=== PATIENT | female | born 1965 | race Caucasian/White ===

== ENCOUNTER 2022-09-12 08:10 | Outpatient (CLI) | payer OTHER, SELFPAY ==
--- OUTSIDE RECORDS SUMMARY | 2022-09-12 08:13 | XMS_ITS | Clinical Summary ---
:1965 Author Organization [facility] [facility] [place] [address] Care Team Providers Name Role Phone Ciro Galindo MD Primary Care Provider [phone] Allergies Active Allergy Reactions Severity Noted Date Comments Penicillins Medications Medication Sig Dispensed Refills Start Date End Date Status losartan (COZAAR) 50 mg Take 1 Tablet (50 90 Tablet 3 11/25/19 22 Active tabletIndications: mg) by mouth once Essential hypertension daily. Active Problems Problem Noted Date Routine adult health maintenance 12/03/2019 Overview: Colonoscopy 11/2019 normal, repeat in 10 years Pure hypercholesterolemia 05/22/2007 Unspecified essential hypertension 05/22/2007 Overview: dx 02/23 Immunizations Name Administration Dates Next Due AMB Influenza, IIV3 (Age 6-35 mos) (Flu 09/20/2018 Clinic Only) COVID-19 vaccine (iHandle 11/02/2021, 12/01/2020, 30mcg/0.3mL) PF, MDV Influenza, IIV3 (Age >=3 years) 08/18/2021 Td (Age >=7 Years) 11/20/2001 Family History Medical History Relation Name Comments Heart Disease Father [place]/angioplasties /CABG Heart Disease Mother palpitations Heart Disease Paternal Grandfather of [place] at 54 Heart Disease Paternal Uncle IA Relation Name Status Comments Father Mother Paternal Grandfather Paternal Uncle Social History Tobacco Use Types Packs/Day Years Used Date Never Smoker Smokeless Tobacco: Never Used Tobacco Cessation: Counseling Given: Yes Alcohol Use Standard Drinks/Week Comments Yes 0.8 (1 standard drink = 0.6 oz pure alco hol) Sex Assigned at Date Recorded Not on file Obstetrics History Para Term AB IAB SAB Ectopic Multiple Living Live Births 5 2 2 0 3 0 3 0 0 2 Date Outcome GA Total Labor/2nd/3rd Weight Sex Delivery Anes PTL Leanne A 1 A5 Name Clin Labor SAB SAB SAB Term Term Last Filed Vital Signs Vital Sign Reading Time Taken Comments Blood Pressure 126/84 11/25/2021 8:09 AM VOLTAGE INSPECTOR Pulse 88 11/25/2021 8:03 AM VOLTAGE INSPECTOR Temperature 36.8 ??C (98.2 ??F) 06/18/2020 8:04 AM CDT Respiratory Rate - - Oxygen Saturation 97% 11/25/2021 8:03 AM VOLTAGE INSPECTOR Inhaled Oxygen Concentration - - Weight 66 kg (145 lb 9.6 oz) 11/29/2007 1:55 PM VOLTAGE INSPECTOR Height - - Body Mass Index - - Plan of Treatment Upcoming Encounters Date Type Specialty Care Team Description 10/31/2022 Office Visit Ciro Galindo MD [address] [place], [place] [address] (Wo rk) Health Maintenance Due Date Last Done Comments Tdap 1978 BMI (ht and wt on same day) for 1985 age 18+ Hepatitis C screening for age 1009/04/1985 18-79 Pap test for age 21-65 11/20/2007 11/20/2004 Tetanus booster 11/20/2011 11/20/2001 Zoster (shingles) series for age 1009/04/2017 50+ (1 of 2) Depression screening for age 12+ 06/18/2021 06/18/2020, , 02/16/2017 COVID-19 vaccine series (4 - 12/28/2021 11/02/2021, 021, Booster for Pfizer series) 11/11/2020 Lipids for age 45-75 02/16/2022 02/16/2017, 06/19/2013, 11/11/2008 Influenza for age 50-64 07/21/2022 08/18/2021 Mammogram for age 45-75 09/09/2022 09/09/2021, 09/07/2020, 09/19/2019, Additional history exists Colonoscopy through age 75 12/03/2029 12/03/2019, 0, 12/03/2019 Results Not on filefrom Last 3 Months Insurance Payer Benefit Plan / Subscriber ID Effective Dates Phone Addre ss Type Group PREFERRED ONE PREFERRED ONE [id number] 2021-Piotr KEARNEY [address] [place] [id number] [place] [id number] Tessa Cant[address] Self [id number] [phone] Milagro [place]OVAK (Work) [id number] Care Teams Pasteuriser Operator Relationship Specialty Start Date End Date Ciro Galindo MD PCP - General 09/13/[address] [place] [address]
--- NOTE | 2022-09-12 08:15 | CRLHL7_ITS ---
For Patients: As a result of the Century Cures Act, medical imaging exams and procedure reports are released immediately into your electronic medical record. You may view this report before your referring provider. If you have questions, please contact your health care provider. BILATERAL SCREENING MAMMOGRAM WITH COMPUTER-AIDED DETECTION AND TOMOSYNTHESIS TECHNIQUE: CC and MLO views were obtained. These mammographic images have been obtained using full-field digital technique. These mammographic images were interpreted with the benefit of computer-aided detection. Breast Tomosynthesis was used in this interpretation. COMPARISON FILM: 09/09/21, 09/07/20, 09/19/19. FINDINGS: There are scattered areas of fibroglandular density IMPRESSION: There is no radiographic evidence for malignancy. ASSESSMENT: BI-RADS Category 1: Negative RECOMMENDATION: Routine screening mammogram in 1 year. A lay language report of this examination will be provided to the patient. Duane Austin M.D. Diagnostic Radiologist [email or web address] MEGHANN/Dictated by: Duane Austin MD @ 09/12/2022 11:57:00 AM (Electronically Signed)
== END 2022-09-12 08:11 | disposition home or self-care (01) ==
PROVIDERS: PCP Family Medicine; Visit Provider Family Medicine
DX: Z12.31 Encounter for screening mammogram for malignant neoplasm of breast (principal)
CPT/HCPCS: 77063; 77067

== ENCOUNTER 2022-11-15 14:44 | Outpatient (CLI) | payer OTHER, SELFPAY ==
[2022-11-15 15:53] VITALS: BP 131/74; PULSE 83
--- NOTE | 2022-11-15 17:20 | W.PM.STED ---
Stress Test Note Date Date Seen: 11/15/22 Date of test: 11/15/22 Providers Primary care provider: Ciro Galindo Stress test physician: Harmeet Lopez Stress Test Note Stress test ordered: Stress Echo Indication for test: Chest pain Results discussion: Patient is a 57-year-old female presents here for a stress echo from ordering physician indication is chest pain after discussion the risks benefits side effects reviewed the cardiac stress test medical history she would like to proceed pretest EKG shows normal sinus rhythm, ventricular rate 93 in a blood pressure 138 on 83, patient was followed Juvenal protocol for 10 minutes and achieved a metabolic open 11.7 Mets condition was felt to be excellent maximum was 163 was 116% of the maximum a 10 minutes 10 seconds, test is terminated his of fulfillment of protocol, she had no ST wave changes suggestive of ischemia, there is no dysrhythmias, and otherwise was normal with no other subjective complaints Impression: Negative electrographic portion of stress echo Follow up suggested: Await echo images clinical correlation with these will be needed, patient left this testing facility in excellent condition,
== END 2022-11-15 14:45 | disposition home or self-care (01) ==
PROVIDERS: PCP Family Medicine; Visit Provider Family Medicine
DX: R07.89 Other chest pain (principal)
CPT/HCPCS: 93016; 93325; 93351

== ENCOUNTER 2023-09-06 10:10 | Outpatient (CLI) | payer OTHER, SELFPAY ==
--- NOTE | 2023-09-06 10:15 | CRLHL7_ITS ---
For Patients: As a result of the Century Cures Act, medical imaging exams and procedure reports are released immediately into your electronic medical record. You may view this report before your referring provider. If you have questions, please contact your health care provider. DIGITAL SCREENING BILATERAL MAMMOGRAM USING TOMOSYNTHESIS AND COMPUTER-AIDED DETECTION INDICATION: 58-year-old asymptomatic female. Screening study. The patient has lost 20 pounds since the last mammogram. TECHNIQUE: CC and MLO views were obtained. This digital study was evaluated with assistance of computer-aided detection. Digital breast tomosynthesis utilized in interpretation. COMPARISON: 09/12/2022. 09/09/2021. FINDINGS: Breast Composition: There are areas of scattered fibroglandular density. There is a developing density in the central medial LEFT breast seen only on the CC view. This may reflect superimposed parenchymal elements, but it appears somewhat more dense than before potentially related to interval reported intentional weight loss. Recommend a spot compression view in the CC projection, as well as a true ML view. Rolled CC views mediolaterally may be required. IMPRESSION: 1. Nothing for malignancy on the RIGHT. No significant change on the RIGHT other than a slightly smaller breast likely due to interval weight reduction. 2. Developing density central LEFT breast middle depth at approximately the 12 o`clock position seen only on the CC view for which additional imaging is recommended. Ultrasound may be required if this density persists. BI-RADS Category 0: Incomplete: Need Additional Imaging Evaluation and/or Prior Mammograms for Comparison [facility] will contact the patient for follow-up. A lay language report of this examination will be provided to the patient. Dictated by: Carlos Alberto Aguilar MD @09/06/2023 11:06:33 AM carlos/Dictated by: Carlos Alberto Aguilar MD @ 09/06/2023 11:06:00 AM (Electronically Signed)
== END 2023-09-06 10:11 | disposition home or self-care (01) ==
PROVIDERS: PCP Family Medicine; Visit Provider Family Medicine
DX: Z12.31 Encounter for screening mammogram for malignant neoplasm of breast (principal); N63.20 Unspecified lump in the left breast, unspecified quadrant
CPT/HCPCS: 77063; 77067

== ENCOUNTER 2023-09-13 07:43 | Outpatient (CLI) | payer OTHER, SELFPAY ==
--- NOTE | 2023-09-13 07:45 | CRLHL7_ITS ---
For Patients: As a result of the Cures Act, medical imaging exams and procedure reports are released immediately into your electronic medical record. You may view this report before your referring provider. If you have questions, please contact your health care provider. DIGITAL DIAGNOSTIC LEFT MAMMOGRAM USING TOMOSYNTHESIS AND COMPUTER-AIDED DETECTION LEFT BREAST ULTRASOUND CLINICAL HISTORY: LEFT breast mass/asymmetry. COMPARISON: 09/06/2023. TECHNIQUE: Digital LEFT mammogram in two projections. Tomosynthesis and CAD utilized. Real-time ultrasound imaging of LEFT breast with imaging documentation. BREAST COMPOSITION: The breast is heterogeneously dense, which may obscure small masses. FINDINGS: 3D true lateral and 3D spot compression CC LEFT breast mammogram images submitted. Decreased conspicuity of previously noted asymmetric density. No architectural distortion or suspicious calcification. Targeted LEFT breast ultrasound performed in the retroareolar plane demonstrates normal dense fibroglandular tissue. No suspicious findings. IMPRESSION: No evidence of malignancy. RECOMMENDATIONS: Annual BILATERAL screening mammography. Results and recommendations discussed with the patient. BI-RADS Category 2: Benign A lay language report of this examination will be provided to the patient. Dictated by Duane Austin MD @ 09/13/2023 1:06:21 PM janis/Dictated by: Duane Austin MD @ 09/13/2023 1:06:00 PM (Electronically Signed)
--- NOTE | 2023-09-13 08:15 | CRLHL7_ITS ---
For Patients: As a result of the Cures Act, medical imaging exams and procedure reports are released immediately into your electronic medical record. You may view this report before your referring provider. If you have questions, please contact your health care provider. PLEASE SEE DIGITAL DIAGNOSTIC LEFT MAMMOGRAM PERFORMED SAME DAY CRL:janis bruce/Dictated by: Duane Austin MD @ 09/13/2023 1:06:00 PM (Electronically Signed)
== END 2023-09-13 07:44 | disposition home or self-care (01) ==
LOC: MAMMO 07:43
PROVIDERS: PCP Family Medicine; Visit Provider Family Medicine
DX: N63.20 Unspecified lump in the left breast, unspecified quadrant (principal); R92.8 Other abnormal and inconclusive findings on diagnostic imaging of breast
CPT/HCPCS: 76642; 77065; G0279

== ENCOUNTER 2023-11-17 14:41 | Outpatient (CLI) | payer OTHER, SELFPAY | END 2023-11-17 14:42 | disposition home or self-care (01) | PROVIDERS: PCP Family Medicine; Visit Provider Family Medicine | DX: I10 Essential (primary) hypertension (principal) | CPT/HCPCS: 80048; 80061 ==

== ENCOUNTER 2024-09-09 13:38 | Outpatient (CLI) | payer OTHER, SELFPAY ==
--- NOTE | 2024-09-09 13:40 | CRLHL7_ITS ---
For Patients: As a result of the Century Cures Act, medical imaging exams and procedure reports are released immediately into your electronic medical record. You may view this report before your referring provider. If you have questions, please contact your health care provider. BILATERAL SCREENING MAMMOGRAM WITH COMPUTER-AIDED DETECTION AND TOMOSYNTHESIS TECHNIQUE: CC and MLO views were obtained. These mammographic images have been obtained using full-field digital technique. These mammographic images were interpreted with the benefit of computer-aided detection. Breast Tomosynthesis was used in this interpretation. COMPARISON FILM: 09/06/23, 09/12/22, 09/09/21. FINDINGS: There are scattered areas of fibroglandular density. IMPRESSION: There is no radiographic evidence for malignancy. ASSESSMENT: BI-RADS Category 2: Benign RECOMMENDATION: Routine screening mammogram in 1 year. A lay language report of this examination will be provided to the patient. Duane Austin M.D. Diagnostic Radiologist [email or web address] SP/Dictated by: Duane Austin MD @ 09/12/2024 11:39:00 AM (Electronically Signed)
--- OUTSIDE RECORDS SUMMARY | 2024-09-09 13:42 | XMS_ITS | Clinical Summary ---
Author Organization [email or web address] [facility] Address [place], [place] [address] Care Team Providers Care Linseed Oil Press Tender Name Role Phone Unavailable Primary Care Provider Unavailabl e Allergies Active Allergy Reactions Criticality Noted Date Comments Penicillins Medications Medication Sig Dispensed Refills Start Date End Date Status losartan (COZAAR) 50 mg tabletIndications:Esse ntial hypertension Take 1 Tablet (50 mg) by mouth once daily. 90 Tablet 3 10/31/2022 Active Active Problems Problem Noted Date Diagnosed Date Routine adult health maintenance 12/03/2019 Overview (12/03/2019): Colonoscopy 11/2019 normal, repeat in 10 years Pure hypercholesterolemia 05/22/2007 Unspecified essential hypertension 05/22/2007 Overview (05/22/2007): dx 02/23 Immunizations Name Administration Dates Next Due AMB Influenza, IIV3 (Age 6-3 5 mos) (Flu Clinic Only) 09/20/2018 COVID-19 vaccine (Follica NTAsia Translate 30mcg/0.3mL) PF, MDV 11/02/2021,12/01/2020,11/11/2020 Influenza, IIV3 (Age >=3 years) 08/18/2021 Influenza, IIV4 09/19/2022 Td (Age >=7 Years) 11/20/2001 Zoster (Shingrix-RZV, recombinant) 10/31/2022 Family History Medical History Relation Name Comments Heart Disease Father [place]/angioplasti es/CABG Heart Disease Mother palpitations Heart Disease Paternal Grandfather o f PR at 54 Heart Disease Paternal Uncle PR Relation Name Status Comments Father Mother Paternal Grandfather Paternal Uncle Social History Tobacco Use Types Packs/Day Years Used Date Smoking Tobacco: Never Smokeless Tobacco: Never Tobacco Cessation:Counseling Given: Yes Alcohol Use Standard Drinks/Week Comments Yes 0.8 (1 standard drink = 0.6 oz p ure alcohol) PHQ-2 Answer Date Recorded PHQ-2 TOTAL SCORE 0 06/18/2020 Social Connections Answer Date Recorded Frequency of Communication with Friends and Fami ly Not on file 11/13/2023 Financial Resource Strain Answer Date R ecorded Difficulty of Paying Living Expenses 3 10/31/2022 Difficulty of Paying Living Expenses Not on file 10/31/2022 Food Insecurity Answer Date Recorded Worried About Running Out of Food in the Last Ye ar 1 10/31/2022 Transportation Needs Answer Date Record ed Lack of Transportation (Medical) 1 10/31/2022 Housing Stability Answer Date Recorded Unable to Pay for Housing in the Last Year 1 10/31/2022 Sex and Gender Information Value Date Recorded Sex Assigned at Not on file Gender Identity Not on file Sexual Orientation Not on file Obstetrics History Para Term AB IAB SAB Ectopic Multiple Livin g Live Births 5 2 2 0 3 0 3 0 0 2 Date Outcome GA Total Labor Labor/2nd/3rd Weight Sex Type Anes PTL Leanne A1 A5 Name Clin SAB SAB SAB Term Term Last Filed Vital Signs Vital Sign Reading Time Taken Comments Blood Pressure 122/84 10/31/2022 8:20 AM STONE CARVER Pulse 74 10/31/2022 8:06 AM STONE CARVER Temperature 36.8 ??C (98.2 ??F) 06/18/2020 8:04 AM CD T Respiratory Rate - - Oxygen Saturation 98% 10/31/2022 8:06 AM STONE CARVER Inhaled Oxygen Concentration - - Weight 66 kg (145 lb 9.6 oz) 11/29/2007 1:55 PM STONE CARVER Height - - Body Mass Index - - Plan of Treatment Health Maintenance Due Date Last Done Comments Tdap 1978 HIV for age 15-65 1982 BMI (ht and wt on same day) for age 18+ 1985 Hepatitis C screening for age 18-79 1985 Pap test for age 21-65 11/20/2007 11/20/2004 Tetanus booster 11/20/2011 11/20/2001 Depression screening for age 12+ 06/18/2021 06/18/2020, 12/10/2018, 02/16/2017 Lipids for age 45-75 02/16/2022 02/16/2017, 06/19/2013, 11/11/2008 Zoster (shingles) series for age 50+ (2 of 2) 12/26/2022 10/31/2022 COVID-19 vaccine series ( season) 2024 11/02/2021, 12/01/2020, 11/11/2020 Influenza for age 50-64 07/21/2024 09/19/2022, 08/18 Mammogram for age 45-75 09/13/2024 09/13/20, 09/12/2022, 09/09/2021, Additional history exists Colonoscopy through age 75 12/03/202912/03, 12/03/2019, 12/03/2019 Pneumococcal series for age 6-64 Aged Out No longer eligible based on patient's age to complete this topic Procedures Procedure Name Priority Date/Time Associated Diagnosis Comments SCAN-MAMMOGRAPHY REPORT 09/13/2023 12:00 AM CDT COLONOSCOPY 12/03/2019 8:46 AM STONE CARVER LIPID PANEL W REFLEX MEASURED LDL Routine 02/16/2017 8:59 AM CDT Pure hypercholesterolemia from Last 3 Months or Most Recently Relevant to Health Maintenance Results * SCAN-MAMMOGRAPHY REPORT (09/13/2023 12:00 AM CDT) Anatomical Region Laterality Modality Other Scanner OTHER * COLONOSCOPY (12/03/2019 8:46 AM STONE CARVER) 12/03/2019 8:46 AM STONE CARVER Narrative Transcriptions Arcadio Jacinto MD - 12/03/2019 9:17 AM CST Patient Name: Tessa Cantrell Procedure Date: 12/03/2019 Gender: Female Date of : 1965 Admit Type: Outpatient Procedure: Colonoscopy Proceduralist: Arcadio Jacinto MD , Clarita Link RN(Nurse) Indications/Pre-Op Diagnosis: Screening for colorectal malignant neoplasm, This is the patient's first colonoscopy Medications: Fentanyl 100 micrograms IV, Midazolam 4 mgIV, The level of sedation administered wasmoderate Procedure Description: The patient had risks, benefits and alternatives explained to andgave informed consent. The patient had a stable cardiopulmonary status and judged an adequate candidate for conscious sedation. The [id number] was passed through the anus and advanced tothe cecum, identified by appendiceal orifice and ileocecal valve. The colonoscopy was performed without difficulty. The patient toleratedthe procedure well. The quality of the bowel preparation was good. The ileocecal valve, appendiceal orifice, and rectum were photographed. Complications: No immediate complications. Estimated Blood Loss & Specimen: Estimated blood loss: none. Specimen collected - None Findings: The perianal and digital rectal examinations were normal. The entire examined colon appeared normal on direct and retroflexion views. Impressions/Post-Op Diagnosis: - The entire examined colon is normal on direct and retroflexionviews. - No specimens collected. Recommendation: - Patient has a contact number available for emergencies. The signsand symptoms of potential delayed complications were discussed with the patient. Return to normal activities tomorrow. Written discharge instructions were provided to the patient. - Resume previous diet. - Continue present medications. - Repeat colonoscopy in 10 years for screening purposes. Moderate Sedation: Moderate (conscious) sedation was administered by the endoscopy nurse and supervised by the endoscopist. The following parameters were monitored: oxygen saturation, heart rate, respiratory rate, blood pressure, adequacy of pulmonary ventilation and reponse to care. Please refer to the patien'ts medical record flowsheets and nursing notes for moderate sedation details. Total physician intraservice time was 18 minutes. Arcadio Jacinto MD 12/03/2019 9:17:22 AM This report has been signed electronically. Note Initiated On: 12/03/2019 8:46 AM Procedure Code(s): --- Professional --- 77015, Colonoscopy, flexible; diagnostic, including collection of specimen(s) bybrushing or washing, when performed (separateprocedure) Diagnosis Code(s): --- Professional --- Z12.11, Encounter for screening formalignant neoplasm of colon CPT copyright 2018 [employer]. All rights reserved. The codes documented in this report are preliminary and upon screen room operator reviewmay be revised to meet current compliance requirements. Scope In: 8:56:40 AM Scope Withdrawal Time 0 hours 6 minutes 55 seconds Scope Out: 9:12:50 AM Arcadio Jacinto MD PROCEDURE ORD * (ABNORMAL) LIPID PANEL W REFLEX MEASURED LDL (02/16/2017 8:59 AM CDT) CHOLESTEROL,TOTAL 219(H) 100 - 199 mg/dL 02/16/2017 9:50 AM CDT [facility] TRIGLYCERIDES 103 <150 mg/dL 02/16/2017 9:50 AM CDT [facility] HDL CHOLESTEROL 58 >40 mg/dL 7 9:50 AM CDT [facility] NON-HDL CHOLESTEROL 161(H) <145 mg/dl 02/16/2017 9:50 AM CDT [facility] CHOL/HDL RATIO 3.78 <4.50 02/16/2017 9:50 AM CDT [facility] LDL CHOLESTEROL 140(H) <=130 mg/dL 02/16/2017 9:50 AM CDT [facility] PATIENT STATUS NON-FASTI NG 02/16/2017 9:50 AM CDT [facility] Blood BLOOD SPECIMEN / Unknown Venipuncture / Unknown 02/16/2017 8:59 AM CDT 02/16/2017 8:59 AM CDT Ciro Galindo MD CHEMISTRY [facility] [address] [place] [address], [place] [phone] from Last 3 Months or Most Recently Relevant to Health Maintenance
== END 2024-09-09 13:39 | disposition home or self-care (01) ==
LOC: MAMMO 13:39
PROVIDERS: PCP Family Medicine; Visit Provider Family Medicine
DX: Z12.31 Encounter for screening mammogram for malignant neoplasm of breast (principal)
CPT/HCPCS: 77063; 77067

== ENCOUNTER 2024-11-08 08:08 | Outpatient (CLI) | payer OTHER, SELFPAY | END 2024-11-08 08:09 | disposition home or self-care (01) | LOC: FBOREF 08:08 | PROVIDERS: PCP Family Medicine; Visit Provider Family Medicine | DX: I10 Essential (primary) hypertension (principal) | CPT/HCPCS: 80048 ==

== ENCOUNTER 2025-09-10 08:09 | Outpatient (CLI) | payer OTHER, SELFPAY ==
--- NOTE | 2025-09-10 08:15 | CRLHL7_ITS ---
For Patients: As a result of the Century Cures Act, medical imaging exams and procedure reports are released immediately into your electronic medical record. You may view this report before your referring provider. If you have questions, please contact your health care provider. INDICATION: BILATERAL SCREENING MAMMOGRAM, ASYMPTOMATIC 60 Y/O FEMALE COMPARISON: 09/09/2024, 09/13/2023, 09/06/2023 TECHNIQUE: Digital mammogram in CC and MLO projections including computer-aided detection (CAD) and tomosynthesis. BREAST COMPOSITION: There are scattered areas of fibroglandular density. FINDINGS: No suspicious findings. ASSESSMENT: BI-RADS 2 Benign RECOMMENDATION: Annual screening mammogram. A lay language report of this examination will be provided to the patient. Dictated by: Duane Austin MD @ 09/10/2025 10:28:40 (Electronically Signed)
== END 2025-09-10 08:10 | disposition home or self-care (01) ==
LOC: MAMMO 08:09
PROVIDERS: PCP Family Medicine; Visit Provider Family Medicine
DX: Z12.31 Encounter for screening mammogram for malignant neoplasm of breast (principal)
CPT/HCPCS: 77063; 77067